=== PATIENT | female | born 1990 ===

== ENCOUNTER 2018-11-29 08:16 | Emergency (ER) | payer OTHER, SELFPAY ==
[2018-11-29 08:22] VITALS: BP 108/63; PULSE 82; RESP 12; TEMP 36.6; O2SAT 99
--- NOTE | 2018-11-29 08:41 | DI.RAD.S_ITS ---
PROCEDURE: XR KNEE LT 3V INDICATIONS: fall injury TECHNIQUE: 3 views of the knee were acquired. COMPARISON: None. FINDINGS: Bones: No fractures or dislocations. No suspicious bony lesions. Soft tissues: No joint effusion. No suspicious soft tissue calcifications. IMPRESSION: Normal for age, source of current posttraumatic pain symptoms is not seen. Dictated by: Guillermo Sanchez M.D. on 11/29/2018 at 9:16 Approved by: Guillermo Sanchez M.D. on 11/29/2018 at 9:17
--- NOTE | 2018-11-29 08:41 | DI.RAD.S_ITS ---
PROCEDURE: XR ANKLE LT MIN 3V INDICATIONS: fall injury TECHNIQUE: 3 views of the ankle were acquired. COMPARISON: None. FINDINGS: Bones: No fractures or dislocations. Ankle mortise is normally aligned. No suspicious bony lesions. Soft tissues: No tibiotalar joint effusion. Achilles tendon appears normal. IMPRESSION: Normal for age, source of current posttraumatic pain symptoms is not seen. Dictated by: Guillermo Sanchez M.D. on 11/29/2018 at 9:16 Approved by: Guillermo Sanchez M.D. on 11/29/2018 at 9:16
--- NOTE | 2018-11-29 08:57 | ED_ITS ---
HPI - Extremity Injury (Lower) General Chief Complaint: Extremity Injury, Lower Stated Complaint: LEFT KNEE, ANKLE PAIN Time Seen by Provider: 11/29/18 08:29 Source: patient Mode of arrival: ambulatory Limitations: no limitations History of Present Illness HPI Narrative: Patient is a 28-year-old female who presents with of left knee and ankle pain. Her knee started a couple weeks back when she was running. She now feels like his it is on stable. This weekend somebody fell onto her left leg she feels like her ankle and knee both hurt. She has no numbness or tingling. She does not feel like she is able to weight bear. He has not been using a knee brace or crutches. She has been taking some ibuprofen without any relief. She is actually supposed to be going to physical therapy today for her knee. MD complaint: knee injury and ankle injury Onset (ago): week(s) (Knee weeks ago) Relieving factors: nothing Exacerbating factors: movement Context: direct blow and running Associated symptoms: snap/pop sensation Other symptoms: none Review of Systems Review of Systems GENERAL: Denies chills,fever HEENT: Denies throat pain RESPIRATORY: Denies dyspnea, cough, wheezing CARDIOVASCULAR: Denies chest pain, palpitations GASTROINTESTINAL: Denies nausea, vomiting MUSCULOSKELETAL: See HPI SKIN: No rash, no laceration, no pruritus NEUROLOGIC: Denies weakness, dizziness, headache, numbness 8 point review of systems is negative except for those stated above and HPI Exam Initial Vital Signs Initial Vital Signs: Vital Signs Temperature 97.8 F 11/29/18 08:22 Pulse Rate 82 11/29/18 08:22 Respiratory Rate 12 11/29/18 08:22 Blood Pressure 108/63 11/29/18 08:22 Pulse Oximetry 99 11/29/18 08:22 GENERAL: Well-appearing, well-nourished and in no acute distress. CARDIOVASCULAR: peripheral pulses in tact, cap refill <2 sec RESPIRATORY: No respiratory distress, speaks in full sentences without difficulty EXTREMITIES: Normal range of motion, no clubbing or edema. Neurovascularly intact -left lower extremity: Left knee is stable no effusion negative anterior posterior drawer. Ankle mild swelling no tenderness over malleoli slight tenderness all midline 2 cm. NEUROLOGICAL: Cranial nerves II through XII grossly intact. Normal gait and speech. SKIN: Warm, dry, no petechiae, no rashes or lesions. Course Orders Ordered: ED Orders 11/29/18 08:41 XR ankle LT min 3V Stat XR knee LT 3V Stat Vital Signs - 8 hr 11/29/18 08:22 Temperature 97.8 F Pulse Rate 82 Respiratory Rate 12 Blood Pressure 108/63 Pulse Oximetry 99 MDM - Extremity Injury (Lower) Imaging Data KR left Knee: Radiologist's impression: PROCEDURE: XR KNEE LT 3V INDICATIONS: fall injury TECHNIQUE: 3 views of the knee were acquired. COMPARISON: None. FINDINGS: Bones: No fractures or dislocations. No suspicious bony lesions. Soft tissues: No joint effusion. No suspicious soft tissue calcifications. IMPRESSION: Normal for age, source of current posttraumatic pain symptoms is not seen. Dictated by: Guillermo Sanchez M.D. on 11/29/2018 at 9:16 XR left Ankle: Radiologist's impression: PROCEDURE: XR ANKLE LT MIN 3V INDICATIONS: fall injury TECHNIQUE: 3 views of the ankle were acquired. COMPARISON: None. FINDINGS: Bones: No fractures or dislocations. Ankle mortise is normally aligned. No suspicious bony lesions. Soft tissues: No tibiotalar joint effusion. Achilles tendon appears normal. IMPRESSION: Normal for age, source of current posttraumatic pain symptoms is not seen. Dictated by: Guillermo Sanchez M.D. on 11/29/2018 at 9:16 Discharge Plan Departure Patient Disposition: Home Clinical Impression: Knee strain Instructions: DI for Knee Sprain Activity Restrictions/Additional Instructions: *You have been diagnosed with left knee strain and *What to do: Wear knee brace as needed while active use crutches tolerated. X- rays are negative *Continue to take medications as directed Motrin 800 mg every 8 hr with food *Follow up with your primary care provider in 2-3 days *Return to ER if you should have numbness tingling, weakness or any new, worsening or concerning symptoms Referrals: [facility] [Provider Group]
== END 2018-11-29 09:59 | disposition home or self-care (01) ==
PROVIDERS: Emergency Provider Emergency Medicine
DX: S86.912A Strain of unspecified muscle(s) and tendon(s) at lower leg level, left leg, initial encounter (principal); Y93.02 Activity, running
CPT/HCPCS: 73562; 73610; 99283

== ENCOUNTER 2018-12-22 16:05 | Emergency (ER) | payer OTHER, SELFPAY ==
[2018-12-22 16:08] VITALS: BP 110/60; PULSE 77; RESP 14; TEMP 36.8; O2SAT 99; BMI 29.2
--- NOTE | 2018-12-22 16:22 | PC.NURSE ---
Attempt to look at patients ear. She is unable to hold still with slight touch. States it hurts 9/10 pain without touch and pain goes up with any touching.
--- NOTE | 2018-12-22 16:35 | DI.CT.S_ITS ---
PROCEDURE: CT FACIAL BONES W CON INDICATIONS: pain to anterior posterior and inferior left ear TECHNIQUE: After the administration of intravenous contrast, 2.5 mm axial sections acquired from the mid-neck to the frontal sinuses, with coronal and sagittal reformats. For radiation dose reduction, the following was used: automated exposure control, adjustment of mA and/or kV according to patient size. COMPARISON: None. FINDINGS: Image quality: Excellent. Soft tissues: In this patient with this given history, scrutiny is given to the region of the left ear. Mild swelling of the left auricle can be seen. No additional significant abnormalities are seen. No abscess can be seen. No edema, masses, or fluid collections. No enlarged lymph nodes. Vascular: Visualized vascular structures appear patent throughout. Bony vascular foramina and canals appear normal. Bones: No left mandible abnormalities can be seen. No significant bony abnormalities can be seen elsewhere. Facial bones appear intact, without fractures, erosions, or destruction. Visualized portions of the skull base and auditory canals also appear normal. Sinuses: Paranasal sinuses are aerated without fluid levels, mucosal thickening, or mucoceles. Mastoid air cells are aerated. IMPRESSION: Mild swelling of the left auricle can be seen. No soft tissue abscess can be seen. No left mandible abnormality is seen. No findings of otitis media or mastoiditis can be seen. Dictated by: Salinas Sanchez M.D. on 12/22/2018 at 17:01 Approved by: Salinas Sacnhez M.D. on 12/22/2018 at 17:04
--- NOTE | 2018-12-22 17:12 | ED.EAR ---
HPI - Ear Problem <MASHA Benson - Last Filed: 12/22/18 22:00> General Chief complaint: Ear Stated complaint: pain in ears Time Seen by Provider: 12/22/18 16:07 Source: patient Mode of arrival: ambulatory Limitations: no limitations History of Present Illness HPI Narrative: 28-year-old healthy female that is a nonsmoker here for complaint of pain into her lower ear area. Pain is to the left TMJ area radiating to the left anterior ear area and to the left inferior ear area over the past couple of days. She denies any trauma to the area. She denies any drainage from the ear. No fevers no chills. Positive p.o. intake. She also reports she has had clicking with jaw movement. pain is limited to the TMJ area and to the ear area ear area is more painful on left side. She denies any other concerns or complaints. Positive p.o. intake. Related Data Previous Rx's Medication Instructions Recorded cyclobenzaprine 10 mg PO TID PRN #10 tab 12/22/18 Allergies Allergy/AdvReac Type Severity Reaction Status Date / Time No Known Drug Allergies Allergy Verified 12/22/18 16:13 Review of Systems <MASHA Benson - Last Filed: 12/22/18 22:00> Constitutional Denies chills, Denies fever(s), Denies lethargy and Denies weakness Eyes Denies change in vision, Denies eye discharge, Denies irritation and Denies loss of vision ENT Comments: Left TMJ and left ear pain Cardiovascular Denies chest pain, Denies irregular heart rhythm, Denies lightheadedness, Denies palpitations, Denies dyspnea, Denies dyspnea on exertion and Denies orthopnea Respiratory Denies cough, Denies dyspnea, Denies dyspnea on exertion and Denies wheezing Gastrointestinal Gastrointestinal: Denies abdominal pain, Denies change in bowel habits, Denies diarrhea, Denies nausea and Denies vomiting Genitourinary Denies hematuria, Denies flank pain, Denies urinary incontinence and Denies urinary urgency Musculoskeletal Denies back pain, Denies muscle weakness, Denies numbness and Denies tingling Integumentary/Breasts Denies pruritus, Denies erythema, Denies rash and Denies wounds Neurologic Denies loss of vision, Denies numbness, Denies tingling and Denies weakness Endocrine Denies palpitations Allergic/Immunologic Denies wheezing PFSH <MASHA Benson - Last Filed: 12/22/18 22:00> Social History Smoking Status: Never smoker Social History Smoking Status: Never smoker Exam <MASHA Benson - Last Filed: 12/22/18 22:00> Initial Vital Signs Initial Vital Signs: Vital Signs Temperature 98.2 F 12/22/18 16:08 Pulse Rate 77 12/22/18 16:08 Respiratory Rate 14 12/22/18 16:08 Blood Pressure 110/60 12/22/18 16:08 Pulse Oximetry 99 12/22/18 16:08 Const General: cooperative and well developed Nutritional Appearance: well nourished Orientation: alert, awake, oriented x3 and not confused HENMT Head: normal to inspection, normocephalic and atraumatic Ears: hearing grossly normal bilaterally, external ears normal, TM's normal bilaterally and no periauricular adenopathy Mouth: oral mucosae normal, oropharynx normal, moist mucous membranes and No abnormal TMJ Eyes Conjunctivae: conjunctivae normal Sclera: sclerae normal Pupils: PERRL EOM: EOM intact bilaterally Neck Neck: normal visual inspection, trachea midline, No lymphadenopathy, No midline deformity and No JVD Lymphatic: No lymphedema Resp Effort & Inspection: normal respiratory effort, able to speak in complete sentences, no respiratory distress and no use of accessory muscles Auscultation: clear to auscultation bilaterally, no rales, no rhonchi and no wheezes Cardio Rate: regular rate Rhythm: regular rhythm Heart Sounds: no click, no gallops, no murmurs and no rubs Pulses: normal peripheral pulses Skin General: no rashes or lesions noted, No jaundice and No petechiae Neuro General: alert, oriented x3, gait normal and no focal motor deficits Speech: speech normal <Cheyanne Watkins DO - Last Filed: 12/23/18 01:43> Initial Vital Signs Initial Vital Signs: Vital Signs Temperature 98.2 F 12/22/18 16:08 Pulse Rate 77 12/22/18 16:08 Respiratory Rate 14 12/22/18 16:08 Blood Pressure 110/60 12/22/18 16:08 Pulse Oximetry 99 12/22/18 16:08 Course <MASHA Benson - Last Filed: 12/22/18 22:00> Orders Ordered: ED Orders 12/22/18 17:00 Complete Blood Count AUTO DIFF Stat Comprehensive Metabolic Panel Stat Vital Signs - 8 hr 12/22/18 18:47 Pulse Rate 71 Respiratory Rate 18 Blood Pressure [Right Arm] 108/73 Pulse Oximetry 100 <Cheyanne Watkins DO - Last Filed: 12/23/18 01:43> Orders Ordered: ED Orders 12/22/18 17:00 Complete Blood Count AUTO DIFF Stat Comprehensive Metabolic Panel Stat Vital Signs - 8 hr 12/22/18 18:47 Pulse Rate 71 Respiratory Rate 18 Blood Pressure [Right Arm] 108/73 Pulse Oximetry 100 Medical Decision Making <MASHA Benson - Last Filed: 12/22/18 22:00> Lab Data Result diagrams: 12/22/18 17:00 12/22/18 17:00 Lab Results 12/22/18 12/22/18 Range/Units 17:00 17:00 WBC 7.3 (4.5-11.0) X10^3/uL RBC 4.20 (4.0-5.2) X10^6/uL Hgb 13.0 (12.0-16.0) g/dL Hct 39.0 (36-46) % MCV 92.9 (80-100) fL MCH 30.9 (26-34) PG MCHC 33.2 (30-36) % RDW 13.7 (11.6-14.8) % Plt Count 244 (150-400) X10^3/uL Neut % (Auto) 55.0 (50-75) % Lymph % (Auto) 35.1 (25-40) % [place] % (Auto) 7.7 (3-14) % Eos % (Auto) 1.8 L (2-4) % Baso % (Auto) 0.4 (0-2) % Neut # (Auto) 4000 (7232-9247) /uL Lymph # (Auto) 2600 (9930-3733) /uL [place] # (Auto) 600 (0-900) /uL Eos # (Auto) 100 (0-450) /uL Baso # (Auto) 0 (0-100) /uL Sodium 141 (137-145) mmol/L Potassium 4.4 (3.4-5.1) mmol/L Chloride 103 (98-107) mmol/L Carbon Dioxide 28 (22-32) mmol/L BUN 22 H (7-17) mg/dL Creatinine 0.90 (0.52-1.04) mg/dL Estimated GFR > 60.0 (>60) mL/min BUN/Creatinine Ratio 24.4 H (6-22) Glucose 84 (70-100) mg/dL Calcium 9.0 (8.4-10.2) mg/dL Total Bilirubin 0.7 (0.2-1.3) mg/dL AST 18 (14-36) IU/L ALT 23 (9-52) IU/L Alkaline Phosphatase 44 (38-126) U/L Total Protein 7.5 (6.3-8.2) g/dL Albumin 4.5 (3.5-5.0) g/dL Globulin 3.0 (1.7-4.1) g/dL Albumin/Globulin Ratio 1.5 (1.0-2.8) Imaging Data facial CT: Radiologist's impression: [address] [place] [address] CT Scan Report Signed Patient: [facility]#: [id number] : 1990Acct:[id number] Age/Sex: te of Service: 12/22/18 Loc: ED Accession Number: [id number] Procedure: CT facial bones w con Ordering Provider: Jose Landis PROCEDURE: CT FACIAL BONES W CON INDICATIONS: pain to anterior posterior and inferior left ear TECHNIQUE: After the administration of intravenous contrast, 2.5 mm axial sections acquired from the mid-neck to the frontal sinuses, with coronal and sagittal reformats. For radiation dose reduction, the following was used: automated exposure control, adjustment of mA and/or kV according to patient size. COMPARISON: None. FINDINGS: Image quality: Excellent. Soft tissues: In this patient with this given history, scrutiny is given to the region of the left ear. Mild swelling of the left auricle can be seen. No additional significant abnormalities are seen. No abscess can be seen. No edema, masses, or fluid collections. No enlarged lymph nodes. Vascular: Visualized vascular structures appear patent throughout. Bony vascular foramina and canals appear normal. Bones: No left mandible abnormalities can be seen. No significant bony abnormalities can be seen elsewhere. Facial bones appear intact, without fractures, erosions, or destruction. Visualized portions of the skull base and auditory canals also appear normal. Sinuses: Paranasal sinuses are aerated without fluid levels, mucosal thickening, or mucoceles. Mastoid air cells are aerated. IMPRESSION: Mild swelling of the left auricle can be seen. No soft tissue abscess can be seen. No left mandible abnormality is seen. No findings of otitis media or mastoiditis can be seen. Dictated by: Salinas Sanchez M.D. on 12/22/2018 at 17:01 Approved by: Salinas Sanchez M.D. on 12/22/2018 at 17:04 [facility] Narrative Medical decision making narrative: CBC and Chem panel were obtained were unremarkable. Facial CT was obtained due to tenderness to the left ear and face area. It was negative for any acute findings And no mastoid abnormalities. suspect that her discomfort is due to a TMJ disorder. [id number] ibuprofen as needed for any discomfort. Rest area. She is also prescribed small amount of cyclobenzaprine to see if it helps with her symptoms. Follow up with primary care provider and dentist next week for re-evaluation. For any worsening symptoms return to the emergency room. <Cheyanne Watkins, - Last Filed: 12/23/18 01:43> Lab Data Lab Results 12/22/18 12/22/18 Range/Units 17:00 17:00 WBC 7.3 (4.5-11.0) X10^3/uL RBC 4.20 (4.0-5.2) X10^6/uL Hgb 13.0 (12.0-16.0) g/dL Hct 39.0 (36-46) % MCV 92.9 (80-100) fL MCH 30.9 (26-34) PG MCHC 33.2 (30-36) % RDW 13.7 (11.6-14.8) % Plt Count 244 (150-400) X10^3/uL Neut % (Auto) 55.0 (50-75) % Lymph % (Auto) 35.1 (25-40) % [place] % (Auto) 7.7 (3-14) % Eos % (Auto) 1.8 L (2-4) % Baso % (Auto) 0.4 (0-2) % Neut # (Auto) 4000 (6383-5593) /uL Lymph # (Auto) 2600 (5799-6693) /uL [place] # (Auto) 600 (0-900) /uL Eos # (Auto) 100 (0-450) /uL Baso # (Auto) 0 (0-100) /uL Sodium 141 (137-145) mmol/L Potassium 4.4 (3.4-5.1) mmol/L Chloride 103 (98-107) mmol/L Carbon Dioxide 28 (22-32) mmol/L BUN 22 H (7-17) mg/dL Creatinine 0.90 (0.52-1.04) mg/dL Estimated GFR > 60.0 (>60) mL/min BUN/Creatinine Ratio 24.4 H (6-22) Glucose 84 (70-100) mg/dL Calcium 9.0 (8.4-10.2) mg/dL Total Bilirubin 0.7 (0.2-1.3) mg/dL AST 18 (14-36) IU/L ALT 23 (9-52) IU/L Alkaline Phosphatase 44 (38-126) U/L Total Protein 7.5 (6.3-8.2) g/dL Albumin 4.5 (3.5-5.0) g/dL Globulin 3.0 (1.7-4.1) g/dL Albumin/Globulin Ratio 1.5 (1.0-2.8) Discharge Plan Departure Patient Disposition: Home Clinical Impression: TMJ (temporomandibular joint disorder) Discharge Date/Time: 12/22/18 18:50 Interventions: ED Discharge Assessment Last Done: 12/22/18 18:49 Instructions: DI for Temporomandibular Disorder Activity Restrictions/Additional Instructions: CT of the face was obtained and was negative for any acute findings. laboratory results were unremarkable. Signs and symptoms presents as TMJ disorder. Use [id number] ibuprofen as needed for any discomfort. Small amount muscle relaxer is prescribed to see if it helps symptoms. Rest area. Soft foods for the next few days. Follow up with primary care provider/dentist For any worsening symptoms return to the Prescriptions: New cyclobenzaprine 10 mg tablet 10 mg PO TID PRN (Reason: muscle spasm) Qty: 10 RF: 0 Referrals: [facility] [Provider Group] <Cheyanne Watkins, - Last Filed: 12/23/18 01:43> Cosign ED Attending Lety Attestation: I was immediately available in the department for consultation. Documentation has been reviewed. I agree with assessment and plan.
[2018-12-22 17:16] LABS: Add Manual Diff / Slide Review NO; Basophils Absolute Auto 0 /uL (0-100); Basophils Percent Auto 0.4 % (0-2); Eosinophils Absolute Auto 100 /uL (0-450); Eosinophils Percent Auto 1.8 % (2-4); Lymphocytes Absolute Auto 2600 /uL (1100-4500); Lymphocytes Percent Auto 35.1 % (25-40); Mean Corpuscular HGB Conc 33.2 % (30-36); Mean Corpuscular Hemoglobin 30.9 PG (26-34); Mean Corpuscular Volume 92.9 fL (80-100); Monocytes Absolute Auto 600 /uL (0-900); Monocytes Percent Auto 7.7 % (3-14); Neutrophils Absolute Auto 4000 /uL (1500-7000); Platelet Count 244 X10^3/uL (150-400); Red Cell Distribution Width 13.7 % (11.6-14.8); White Blood Cell Count 7.3 X10^3/uL (4.5-11.0)
[2018-12-22 17:27] LABS: Alanine Aminotransferase 23 IU/L (9-52); Albumin 4.5 g/dL (3.5-5.0); Albumin Globulin Ratio 1.5 (1.0-2.8); Alkaline Phosphatase 44 U/L (38-126); Aspartate Aminotransferase 18 IU/L (14-36); BUN Creatinine Ratio 24.4 (6-22); Bilirubin Total 0.7 mg/dL (0.2-1.3); Blood Urea Nitrogen 22 mg/dL (7-17); Carbon Dioxide 28 mmol/L (22-32); Chloride 103 mmol/L (98-107); Estimated Glomerular Filt Rate > 60.0 mL/min (>60); Glucose 84 mg/dL (70-100); HEMOLYSIS < 15 (0-50); Potassium 4.4 mmol/L (3.4-5.1); Sodium 141 mmol/L (137-145); Total Protein 7.5 g/dL (6.3-8.2)
[2018-12-22 18:47] VITALS: BP 108/73; PULSE 71; RESP 18; O2SAT 100
== END 2018-12-22 18:50 | disposition home or self-care (01) ==
PROVIDERS: Emergency Provider Nurse Practitioner Family
DX: S03.00XA Dislocation of jaw, unspecified side, initial encounter (principal)
CPT/HCPCS: 36415; 70487; 80053; 85025; 99282; 99285; Q9967

== ENCOUNTER 2019-09-22 15:48 | Emergency (ER) | payer OTHER, SELFPAY ==
[2019-09-22 15:54] VITALS: BP 114/64; PULSE 100; RESP 14; TEMP 36.3; O2SAT 98; BMI 28.3
--- NOTE | 2019-09-22 15:57 | DI.RAD.S_ITS ---
PROCEDURE: XR HAND RT MIN 3V INDICATIONS: jammed thumb yesterday pain in thumb and base of hand TECHNIQUE: 3 views of the hand(s) acquired. COMPARISON: None. FINDINGS: Bones: No displaced fractures or dislocations. Carpal bones are normally aligned. No suspicious bony lesions. Soft tissues: No suspicious soft tissue calcifications. IMPRESSION: No acute fractures of the thumb are evident. Dictated by: Jose Juan Rivera M.D. on 09/22/2019 at 15:41 Approved by: Jose Juan Rivera M.D. on 09/22/2019 at 15:43
[2019-09-22] MEDS: ACETAMINOPHEN 325 MG TABLET 650 MG PO (16:38)
[2019-09-22] MEDS: IBUPROFEN 400 MG TABLET PO (16:38)
--- NOTE | 2019-09-22 16:38 | ED_ITS ---
HPI - Extremity Injury (Upper) <MASHA Pond - Last Filed: 09/22/19 17:18> General Chief Complaint: Extremity Injury, Upper Stated Complaint: RIGHT HAND THUMB INJURY Time Seen by Provider: 09/22/19 16:03 Source: patient Mode of arrival: Ambulatory Limitations: no limitations History of Present Illness HPI narrative: This is a pleasant 28-year-old female, nonsmoker, who presents to ED with right thumb swelling and pain with movement. Patient injured right thumb yesterday after she jammed affected finger on a football when trying to catch the ball. Patient reports pain is worse with extension movement of right thumb than flexion. Patient reports pain is radiating to upper arm and next 2nd and 3rd finger with movements. Patient reports intact sensation. Patient right dominant hand. Related Data Previous Rx's Medication Instructions Recorded cyclobenzaprine 10 mg PO TID PRN #10 tab 12/22/18 Allergies Allergy/AdvReac Type Severity Reaction Status Date / Time No Known Drug Allergies Allergy Verified 09/22/19 15:56 Review of Systems <MASHA Pond - Last Filed: 09/22/19 17:18> Review of Systems Narrative: General: Denies fever, chills, fatigue, malaise, sweats. HEENT: Denies sinus pain, ear pain, sore throat, difficulty swallowing, dizziness. Respiratory: Denies dyspnea, cough, wheezing, hemoptysis, sputum. Cardiovascular: Denies chest pain, palpitations, orthopnea, edema. Gastrointestinal: Denies nausea, vomiting, abdominal pain, diarrhea, constipation, melena. : Denies dysuria, frequency, incontinence, hematuria, urinary retention. Musculoskeletal: See HPI Skin: Denies rash, skin lesions, or other. Neurologic: Denies weakness, headache, numbness, change in speech, confusion, seizures, incoordination. Psychiatric: No concerning psychosocial issues. 12-point review of systems is negative except for those stated above. Patient History <MASHA Pond - Last Filed: 09/22/19 17:18> Social History Smoking Status: Never smoker alcohol intake frequency: 0-2 drinks per day Substance Use Type: does not use Exam <MASHA Pond - Last Filed: 09/22/19 17:18> Narrative Exam Narrative: General appearance: well developed, well nourished, in no acute distress. Head: normocephalic, atraumatic, no scalp lesions, non-tender. Eye: pupil equal, round. EOMI. Nose: nares patent. Oral: mucosa moist. Neck/Thyroid: neck supple, full range of motion, no visible masses. Skin: no suspicious rashes, lesions over visible areas. Warm and dry. Heart: no clubbing, no cyanosis, no edema. Lungs: Breathing even and unlabored. No stridor. No accessory muscles used. Chest: normal shape and expansion. Abdomen: non-obese, non-distended. Neurologic: alert and oriented. Cognitive exam, PEAR[place] HAND and PNS grossly intact on informal exam. Psych: good eye contact, normal affect. Initial Vital Signs Initial Vital Signs: Vital Signs Temperature 97.4 F L 09/22/19 15:54 Pulse Rate 100 H 09/22/19 15:54 Respiratory Rate 14 09/22/19 15:54 Blood Pressure 114/64 09/22/19 15:54 Pulse Oximetry 98 09/22/19 15:54 Extrem Right upper extremity: shoulder/upper arm Details: normal to inspection and normal ROM, elbow/forearm, wrist Details: normal to inspection and normal ROM and hand Details: neuromotor exam normal Details: wrist extension normal, neurosensory exam normal Details: radial nerve sensory function normal, tendon exam normal, tenderness Location: of the dorsal hand, of the thumb, of the 2nd digit and of the 3rd digit, abnormal ROM of finger (Able to flex and extend right thumb against resistance but reports pain) Details: pain with active ROM and pain with passive ROM and swelling Location: of the thumb; no abrasions, no lacerations and no ecchymosis Left upper extremity: normal to inspection and full ROM <Cheyanne Watkins DO - Last Filed: 09/23/19 07:32> Initial Vital Signs Initial Vital Signs: Vital Signs Temperature 97.4 F L 09/22/19 15:54 Pulse Rate 100 H 09/22/19 15:54 Respiratory Rate 14 09/22/19 15:54 Blood Pressure 114/64 09/22/19 15:54 Pulse Oximetry 98 09/22/19 15:54 Procedures <MASHA Pond - Last Filed: 09/22/19 17:18> Orthopedic Splinting/Casting Injury #1: Side: right Upper Extremity Injury Location: hand Upper Extremity Immobilizer: thumb spica Post splinting neuro exam: intact Post splinting vascular exam: intact Placed by: Nursing Scores <MASHA Pond - Last Filed: 09/22/19 17:18> GCS [place] coma scale eye opening: Spontaneous [place] coma scale verbal response: Orientated [place] coma scale motor response: Obey commands Luis F coma scale total score: 15 Course <MELINA PondP - Last Filed: 09/22/19 17:18> Orders Ordered: Discontinued Medications Acetaminophen (Tylenol) 650 mg PO NOW ONE Stop: 09/22/19 16:30 Last Admin: 09/22/19 16:38 Dose: 650 mg Documented by: ZONIA Ibuprofen (Advil) 400 mg PO NOW ONE Stop: 09/22/19 16:30 Last Admin: 09/22/19 16:38 Dose: 400 mg Documented by: ZONIA Vital Signs Vital signs: Vital Signs - 8 hr 09/22/19 15:54 Temperature 97.4 F L Pulse Rate 100 H Respiratory Rate 14 Blood Pressure 114/64 Pulse Oximetry 98 <Cheyanne Watkins DO - Last Filed: 09/23/19 07:32> Orders Ordered: Discontinued Medications Acetaminophen (Tylenol) 650 mg PO NOW ONE Stop: 09/22/19 16:30 Last Admin: 09/22/19 16:38 Dose: 650 mg Documented by: ZONIA Ibuprofen (Advil) 400 mg PO NOW ONE Stop: 09/22/19 16:30 Last Admin: 09/22/19 16:38 Dose: 400 mg Documented by: ZONIA Vital Signs Vital signs: Vital Signs - 8 hr 09/22/19 15:54 Temperature 97.4 F L Pulse Rate 100 H Respiratory Rate 14 Blood Pressure 114/64 Pulse Oximetry 98 MDM - Extremity Injury (Upper) <MASHA Pond - Last Filed: 09/22/19 17:18> Differential Diagnosis Differential diagnosis: Likely sprain and strain of wrist, fracture of wrist and other (Thumb sprain, thumb dislocation) Medical Records Attestation: I reviewed the patient's medical records. Imaging Data XR-Wrist RT: Radiologist's impression: [address] [address] XRay Report Signed Patient: WASHINGTON GARCES NMR#: [id number] : 1990Acct:[id number] Age/Sex: 28 / FDate of Service: 09/22/19 Loc: ED Accession Number: [id number] Procedure: XR hand RT min 3V Ordering Provider: Pablo Lin PROCEDURE: XR HAND RT MIN 3V INDICATIONS: jammed thumb yesterday pain in thumb and base of hand TECHNIQUE: 3 views of the hand(s) acquired. COMPARISON: None. FINDINGS: Bones: No displaced fractures or dislocations. Carpal bones are normally aligned. No suspicious bony lesions. Soft tissues: No suspicious soft tissue calcifications. IMPRESSION: No acute fractures of the thumb are evident. Dictated by: Jose Juan Rivera M.D. on 09/22/2019 at 15:41 Approved by: Jose Juan Rivera M.D. 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 Patient was able to move her right thumb against resistance but reports increasing pain with extension motion. Right radial pulse is intact with sensation. X-ray on right hand shows no acute findings such as dislocations or fractures. Thumb spica prefabricated splint has been applied for support and patient was medicated with Tylenol and Motrin while in ED. Patient reports pain has improved and advised to use these medications more regularly with acute pain. Patient verbalized understanding and advised to follow up with PCP next week and if pain persists greater than 7- 10 days to have reimage on affected finger and hand. Patient agrees with the treatment plan and verbalized understanding. Discharge Plan Departure Patient Disposition: Home Clinical Impression: Strain of extensor muscle, fascia and tendon of right thumb at wrist and hand level, initial encounter Discharge Date/Time: 09/22/19 17:17 Instructions: DI for Finger Sprain Activity Restrictions/Additional Instructions: You have been diagnosed with [right thumb strain. Xray test today does not show acute findings such as dislocations or fractures. Affected hand was applied with thumb spica splint for pain and support]. What to do: *Take your medications as directed. Please take [id number] Tylenol and or Motrin more regularly. Tylenol, you can take up to 4000 mg in 24 hour period. As for Motrin, you can take 4-800 mg 3 to 4 times a day with food. You can elevate affected hand and use ice pack another 24 hour for swelling and discomfort. *Follow up with your primary care provider in 2-3 days, call for an appointment. Let them know you were seen in the ED and that we asked you to be seen in follow up. *Return to ED if you have any new, worsening, or concerning symptoms, such as [weakness, tingling/numbness, significant swelling, rash, chest pain, breathing difficulty, fever, or any acute concerns.]. Prescriptions: No Action cyclobenzaprine 10 mg tablet 10 mg PO TID PRN (Reason: muscle spasm) Qty: 10 RF: 0 Referrals: [facility] [Outside]
[2019-09-22 17:17] VITALS: PULSE 74; RESP 16; TEMP 36.8; O2SAT 98
== END 2019-09-22 17:17 | disposition home or self-care (01) ==
PROVIDERS: Emergency Provider Nurse Practitioner Family
DX: S66.211A Strain of extensor muscle, fascia and tendon of right thumb at wrist and hand level, initial encounter (principal); Y93.61 Activity, american tackle football
CPT/HCPCS: 29280; 73130; 99282; 99283

== ENCOUNTER 2019-12-17 21:58 | Emergency (ER) | payer OTHER, SELFPAY ==
[2019-12-17 22:21] VITALS: BP 109/73; PULSE 87; RESP 15; TEMP 36.8; O2SAT 100; BMI 28.8
--- NOTE | 2019-12-17 23:16 | PC.NURSE ---
reports, migraine for 2 weeks, this one started before menses, +stress, felt feverish, denies vomiting , left eye with spasm, +able to see, +wears glasses, right hands with occasional shaking, not sleeping, always waking up at 3am, taking tylenol but not better. denies injuries. +photophobia. also with hx of asthma.
[2019-12-17 23:26] LABS: Alanine Aminotransferase 16 IU/L (<35); Albumin 4.5 g/dL (3.5-5.0); Albumin Globulin Ratio 1.5 (1.0-2.8); Alkaline Phosphatase 56 U/L (38-126); Aspartate Aminotransferase 18 IU/L (14-36); Bilirubin Total 0.6 mg/dL (0.2-1.3); Blood Urea Nitrogen 14 mg/dL (7-17); Calcium 8.8 mg/dL (8.4-10.2); Carbon Dioxide 27 mmol/L (22-32); Chloride 101 mmol/L (98-107); Estimated Glomerular Filt Rate > 60.0 mL/min (>60); Globulin 3.1 g/dL (1.7-4.1); Glucose 97 mg/dL (70-100); HEMOLYSIS < 15 (0-50); Potassium 4.1 mmol/L (3.4-5.1); Sodium 137 mmol/L (137-145); Total Protein 7.6 g/dL (6.3-8.2)
[2019-12-17 23:35] LABS: Add Manual Diff / Slide Review NO; Basophils Absolute Auto 100 /uL (0-100); Eosinophils Absolute Auto 100 /uL (0-450); Hemoglobin 13.4 g/dL (12.0-16.0); Lymphocytes Absolute Auto 2000 /uL (1100-4500); Lymphocytes Percent Auto 38.8 % (25-40); Mean Corpuscular HGB Conc 33.6 % (30-36); Mean Corpuscular Hemoglobin 31.2 PG (26-34); Monocytes Absolute Auto 300 /uL (0-900); Monocytes Percent Auto 6.5 % (3-14); Neutrophils Absolute Auto 2600 /uL (1500-7000); Neutrophils Percent Auto 51.7 % (50-75); Platelet Count 224 X10^3/uL (150-400); Red Cell Distribution Width 13.4 % (11.6-14.8)
--- NOTE | 2019-12-17 23:57 | ED_ITS ---
HPI - Headache General Chief Complaint: Headache Stated Complaint: migraines x2 wks Time Seen by Provider: 12/17/19 23:57 Source: patient Mode of arrival: Ambulatory Limitations: no limitations History of Present Illness HPI Narrative: The patient complains of headaches that have been intermittent for the past 2 weeks. She presents with a complaint of migraine. She has not previously been diagnosed with migraines. She describes pain that intermittently occurs over her left brow. She is in the [employer], she works [employer]. She developed a headache this afternoon, relieved with Tylenol. The headache recurred about 5-6 p.m. 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 The headache is decreased at this time. She has been having photophobia, none now. She has intermittent nausea, none now. She has no inking complaints. She denies recent illness. She has no history of head or neck trauma. The pain is also occurring in the occiput on the right side. There is no peripheral numbness or weakness. She takes allergy medications, but is not feeling congested. She is nonsmoker. Related Data Previous Rx's Medication Instructions Recorded cyclobenzaprine 10 mg PO TID PRN #10 tab 12/22/18 ibuprofen 600 mg PO Q6-8H PRN #60 tab 12/18/19 Allergies Allergy/AdvReac Type Severity Reaction Status Date / Time No Known Drug Allergies Allergy Verified 09/22/19 15:56 Review of Systems Review of Systems ROS Unobtainable: All systems reviewed & are unremarkable except as noted in HPI and below Constitutional Constitutional: Denies chills, Denies fever(s) and Denies weakness Eyes Eyes: Denies change in vision, Denies eye discharge, Denies loss of vision and Reports photophobia ENT Ears, Nose, Mouth, and Throat: Denies change in voice, Denies dizziness, Denies nasal congestion, Denies neck pain and Denies sore throat Cardiovascular Cardiovascular: Denies chest pain, Denies irregular heart rhythm, Denies lightheadedness, Denies palpitations, Denies dyspnea and Denies orthopnea Respiratory Respiratory: Denies cough, Denies dyspnea and Denies wheezing Gastrointestinal Gastrointestinal: Denies abdominal pain, Reports nausea and Denies vomiting Musculoskeletal Musculoskeletal: Denies back pain and Denies neck pain Integumentary/Breasts Skin/Breast: Denies erythema and Denies rash Neurologic Neurologic: Denies dizziness, Denies loss of vision and Denies weakness Endocrine Endocrine: Denies palpitations Allergic/Immunologic Allergic/Immunologic: Denies wheezing Patient History Medical History (Updated 12/18/19 @ 01:38 by Iam Nunez MD) No significant past medical history (Inactive) Surgical History (Updated 12/18/19 @ 01:35 by Iam Nunez MD) No pertinent past surgical history (Inactive) Social History Smoking Status: Never smoker Smoking Status: Never smoker alcohol intake frequency: 0-2 drinks per day Substance Use Type: does not use Exam Initial Vital Signs Initial Vital Signs: Vital Signs Temperature 98.3 F 12/17/19 22:21 Pulse Rate 87 12/17/19 22:21 Respiratory Rate 15 12/17/19 22:21 Blood Pressure 109/73 12/17/19 22:21 Pulse Oximetry 100 12/17/19 22:21 Course Course Course Narrative: The patient has received 1 L of IV fluids. She has received IV Toradol. Headache has resolved. The headache has mixed findings, there are suggestions of migraine and suggestions of a tension headache. She was discharged on ibuprofen, with directions to follow up with her [place] doctor Orders Ordered: ED Orders 12/17/19 23:02 CBC Auto Diff [Complete Blood Count AUTO DIFF] Stat Comprehensive Metabolic Panel Stat Discontinued Medications Sodium Chloride (Normal Saline 0.9%) 1,000 mls @ 1,000 mls/hr IV BOLUS ONE Stop: 12/18/19 01:05 Last Admin: 12/18/19 00:20 Dose: 1,000 mls/hr Documented by: ASAEL Ketorolac Tromethamine (Toradol) 30 mg IV NOW ONE Stop: 12/18/19 00:07 Last Admin: 12/18/19 00:21 Dose: 30 mg Documented by: ASAEL Vital Signs Vital signs: Vital Signs - 8 hr 12/17/19 22:21 Temperature 98.3 F Pulse Rate 87 Respiratory Rate 15 Blood Pressure 109/73 Pulse Oximetry 100 MDM - Headache Lab Data Result diagrams: 12/17/19 23:02 12/17/19 23:02 Labs: Lab Results 12/17/19 12/17/19 Range/Units 23:02 23:02 WBC 5.0 (4.5-11.0) X10^3/uL RBC 4.30 (4.0-5.2) X10^6/uL Hgb 13.4 (12.0-16.0) g/dL Hct 40.0 (36-46) % MCV 93.0 (80-100) fL MCH 31.2 (26-34) PG MCHC 33.6 (30-36) % RDW 13.4 (11.6-14.8) % Plt Count 224 (150-400) X10^3/uL Neut % (Auto) 51.7 (50-75) % Lymph % (Auto) 38.8 (25-40) % [place] % (Auto) 6.5 (3-14) % Eos % (Auto) 2.0 (2-4) % Baso % (Auto) 1.0 (0-2) % Neut # (Auto) 2600 (0707-2108) /uL Lymph # (Auto) 2000 (1495-0633) /uL [place] # (Auto) 300 (0-900) /uL Eos # (Auto) 100 (0-450) /uL Baso # (Auto) 100 (0-100) /uL Sodium 137 (137-145) mmol/L Potassium 4.1 (3.4-5.1) mmol/L Chloride 101 (98-107) mmol/L Carbon Dioxide 27 (22-32) mmol/L BUN 14 (7-17) mg/dL Creatinine 0.70 (0.52-1.04) mg/dL Estimated GFR > 60.0 (>60) mL/min BUN/Creatinine Ratio 20.0 (6-22) Glucose 97 (70-100) mg/dL Calcium 8.8 (8.4-10.2) mg/dL Total Bilirubin 0.6 (0.2-1.3) mg/dL AST 18 (14-36) IU/L ALT 16 (<35) IU/L Alkaline Phosphatase 56 (38-126) U/L Total Protein 7.6 (6.3-8.2) g/dL Albumin 4.5 (3.5-5.0) g/dL Globulin 3.1 (1.7-4.1) g/dL Albumin/Globulin Ratio 1.5 (1.0-2.8) Discharge Plan Departure Patient Disposition: Home Clinical Impression: Headache Qualifiers: Headache type: tension-type Headache chronicity pattern: acute headache Intractability: intractable Qualified Code(s): G44.201 - Tension-type headache, unspecified, intractable Instructions: DI for Headache Activity Restrictions/Additional Instructions: Motrin 600 mg every 6 hours as needed for headache. Follow-up with her doctor if the headache persists. Return the ER as needed. Prescriptions: New ibuprofen 600 mg tablet 600 mg PO Q6-8H PRN (Reason: pain) Qty: 60 RF: 0 No Action cyclobenzaprine 10 mg tablet 10 mg PO TID PRN (Reason: muscle spasm) Qty: 10 RF: 0
[2019-12-18] MEDS: SODIUM CHLORIDE 0.9% 1,000 ML 1000 ML IV (00:20)
[2019-12-18] MEDS: KETOROLAC 60 MG/2 ML VIAL 30 MG IV (00:21)
[2019-12-18 01:57] VITALS: BP 103/60; PULSE 77; RESP 16; TEMP 36.5; O2SAT 99
== END 2019-12-18 01:58 | disposition home or self-care (01) ==
PROVIDERS: Emergency Provider Emergency Medicine
DX: G44.201 Tension-type headache, unspecified, intractable (principal)
CPT/HCPCS: 36415; 80053; 85025; 96361; 96374; 99284; J1885

== ENCOUNTER 2020-05-30 02:16 | Emergency (ER) | payer OTHER, SELFPAY ==
[2020-05-30 02:20] VITALS: BP 114/66; PULSE 90; RESP 14; TEMP 36.9; O2SAT 98; BMI 30.1
--- NOTE | 2020-05-30 02:29 | ED.WOUNDLAC ---
HPI - Wound/Laceration General Chief Complaint: Wound/Laceration Stated Complaint: cut palm left hand sun, keeps reopening Time Seen by Provider: 05/30/20 02:19 Source: patient Mode of arrival: Ambulatory Limitations: no limitations History of Present Illness HPI narrative: 29-year-old female nonsmoker and occasional drinker with no significant medical history presents with a chief complaint of a poorly healing wound on palm of her left hand. She suffered a laceration a few days ago when she was trying to lift herself up out of a chair. She suffered a 2 cm laceration and has been caring for it on her own at home including washing with peroxide and Betadine as well as frequent dressings she presents today because she has ongoing pain and episodes of bleeding as it opens up on occasion. Onset (ago): day(s) Extremity Location: Left: hand Body four view annotation: 1. Context: accidental Associated symptoms: none Treatments prior to arrival: bandage Related Data Previous Rx's Medication Instructions Recorded cyclobenzaprine 10 mg PO TID PRN #10 tab 12/22/18 ibuprofen 600 mg PO Q6-8H PRN #60 tab 12/18/19 Allergies Allergy/AdvReac Type Severity Reaction Status Date / Time No Known Drug Allergies Allergy Verified 09/22/19 15:56 Review of Systems Constitutional Constitutional: Denies chills, Denies fatigue, Denies fever(s), Denies frequent falls, Denies lethargy and Denies weakness Eyes Eyes: Denies change in vision, Denies eye discharge, Denies irritation and Denies loss of vision ENT Ears, Nose, Mouth, and Throat: Denies change in voice, Denies dizziness, Denies neck pain, Denies sore throat and Denies throat swelling Cardiovascular Cardiovascular: Denies chest pain, Denies irregular heart rhythm, Denies lightheadedness, Denies palpitations, Denies dyspnea, Denies dyspnea on exertion and Denies orthopnea Respiratory Respiratory: Denies cough, Denies dyspnea, Denies dyspnea on exertion and Denies wheezing Gastrointestinal Gastrointestinal: Denies abdominal pain, Denies change in bowel habits, Denies diarrhea, Denies nausea and Denies vomiting Musculoskeletal Musculoskeletal: Denies neck pain and Denies numbness Integumentary/Breasts Skin/Breast: Denies pruritus, Denies erythema, Denies rash and Reports wounds Neurologic Neurologic: Denies behavioral changes, Denies confusion, Denies dizziness, Denies frequent falls, Denies loss of vision, Denies numbness and Denies weakness Psychiatric Psychiatric: Denies anxiety, Denies behavioral changes, Denies confusion, Denies depression, Denies homicidal ideation and Denies suicidal ideation Endocrine Endocrine: Denies fatigue, Denies flushing and Denies palpitations Hematologic/Lymphatic Hematologic/Lymphatic: Denies easy bruising Allergic/Immunologic Allergic/Immunologic: Denies urticaria, Denies throat swelling and Denies wheezing Patient History Medical History No significant past medical history (Inactive) Surgical History No pertinent past surgical history (Inactive) Social History Smoking Status: Never smoker Smoking Status: Never smoker alcohol intake frequency: 0-2 drinks per day Substance Use Type: does not use Exam Narrative Exam Narrative: GEN: AOx3 and in mild distress EYES: Pupils are equal, round, and reactive to light and accommodation. Extraoccular muscles are intact bilaterally. There is no subconjunctival hemorrhage or exudate. CHEST: Lungs are clear to auscultation bilaterally and free of wheezes, rales, or rhonchi. Heart rate is regular rhythm, there are no murmurs, clicks, rubs, or gallops. There is no chest wall tenderness. ABD: Abdomen is soft and nontender. There is no guarding or rebound. Bowel sounds are normal in all 4 quadrants. There is no mass or organomegaly. EXT: 2 cm laceration, well approximated with no active bleeding, surrounding erythema, induration or suggestion of infection. It does appear as if it has been under a dressing a bit longer than appropriate and benefit from airing out the bit. Full painless ROM of all extremities with no loss of sensation or strength. SKIN: Warm, pink, and dry. No erythema or rash Course Course Course Narrative: Wound is well approximated and not gaping. It is not likely to respond well to sutures or Dermabond. Steri-Strips placed and instructions given to patient for close follow-up given return precautions Discharge Plan Departure Patient Disposition: Home Clinical Impression: Laceration Instructions: DI for Minor Laceration Activity Restrictions/Additional Instructions: *You have been diagnosed with [left hand wound with delayed healing] *What to do: *Follow up with your primary care provider in 2-3 days, call for an appointment. Let them know you were seen in the Emergency Department and that we ask that you be seen in follow up *Return to ER if you should have any new, worsening or concerning symptoms *Keep wound clean and dry Prescriptions: No Action cyclobenzaprine 10 mg tablet 10 mg PO TID PRN (Reason: muscle spasm) Qty: 10 RF: 0 ibuprofen 600 mg tablet 600 mg PO Q6-8H PRN (Reason: pain) Qty: 60 RF: 0 Referrals: [facility] [Outside]
== END 2020-05-30 02:48 | disposition home or self-care (01) ==
PROVIDERS: Emergency Provider Emergency Medicine
DX: S61.412A Laceration without foreign body of left hand, initial encounter (principal); W45.8XXA Other foreign body or object entering through skin, initial encounter
CPT/HCPCS: 99282

== ENCOUNTER → 2020-09-09 10:46 | Outpatient (CLI) | payer OTHER, SELFPAY ==
[2020-09-10 00:27] LABS: COVID19 Sendout Not Detected (Not Detect)
== END ==
PROVIDERS: Visit Provider Physician Assistant
DX: Z11.59 Encounter for screening for other viral diseases (principal)
CPT/HCPCS: 87635

== ENCOUNTER → 2020-09-12 09:19 | Outpatient (CLI) | payer OTHER, SELFPAY ==
--- NOTE | 2020-09-20 16:34 | PM.PFT.1 ---
Pulmonary Function Test Referral & Results Date Patient Seen: 09/12/20 Requesting provider: Ranjit Liang Results: The spirometry demonstrates an FVC of 2.79 L which is 76% of predicted. The FEV1 was measured at 2.30 L which is 73% of predicted. The FEV1/FVC ratio was 82 which is 96% of predicted. Following the administration of bronchodilator there was a 20% improvement in FEF 25-75% Lung volumes show an SVC of 2.80 L which is 77% of predicted. The diffusing capacity was measured at 21.19 which is 92% of predicted. The maximum voluntary ventilation was reduced Interpretation: This study demonstrates both restrictive and obstructive changes. There is limited evidence of benefit following bronchodilator in small airway flow based on improvement in FEF 25-75% as above. The FEV1/FVC ratio however is normal in altogether this is most consistent with an interstitial type restriction, although there may be an element of obstructive lung disease present as well. Clinical correlation suggested
== END ==
PROVIDERS: PCP Internal Medicine Critical Care Medicine; Referring Provider Internal Medicine Critical Care Medicine; Visit Provider Internal Medicine Critical Care Medicine
DX: J45.41 Moderate persistent asthma with (acute) exacerbation (principal)
CPT/HCPCS: 94060; 94726; 94729